=== PATIENT | female | born 1945 | race Caucasian/White ===

== ENCOUNTER 2018-08-24 12:14 | Inpatient (IN) ==
[2018-08-24] MEDS ORDERED: TUSSIONEX PENNKINETIC SUSP PO PRN (14:50)
[2018-08-24] MEDS ORDERED: SOLU-Medrol 125 MG VIAL IVP NR (14:50)
[2018-08-24] MEDS ORDERED: FORTAZ or TAZICEF VIAL INJ IVP SCH (14:50)
[2018-08-24] MEDS ORDERED: NS 1/2 1000 ML IV 1,000 ML ONE (14:57)
[2018-08-24] MEDS: NS 1/2 1000 ML IV 1,000 ML IV SCH (15:15)
[2018-08-24] MEDS: PEPCID 20 MG IV PREMIX* 20 MG/50 ML BAG IV SCH ×2 (15:15→21:16)
[2018-08-24 15:23] LABS: BASOPHILS % (AUTO) 0.3 % (0.2-1.0); EOSINOPHILS # (AUTO) 0.1 x10^3/uL (0.0-0.2); EOSINOPHILS % (AUTO) 0.6 % (0.9-2.9); HEMATOCRIT 34.3 % (36.0-47.0); LYMPHOCYTES # (AUTO) 1.6 X10^3/uL (1.3-2.9); LYMPHOCYTES % (AUTO) 17.1 % (21.0-51.0); MEAN CORPUSCULAR HEMOGLOBIN 23.6 pg (27.0-34.0); MEAN CORPUSCULAR HGB CONC 32.1 g/dL (33.0-35.0); MEAN CORPUSCULAR VOLUME 73.6 fL (80.0-100.0); MEAN PLATELET VOLUME 8.1 fL (7.4-11.0); MONOCYTES # (AUTO) 0.9 x10^3/uL (0.3-0.8); MONOCYTES % (AUTO) 9.6 % (0.0-13.0); NEUTROPHILS # (AUTO) 6.9 x10^3/uL (2.2-4.8); NEUTROPHILS % (AUTO) 72.4 % (42.0-75.0); PLATELET COUNT 74 X10^3/uL (150.0-450.0); RED BLOOD COUNT 4.65 X10^6/uL (3.5-5.4); RED CELL DISTRIBUTION WIDTH 18.3 % (11.6-16.5); WHITE BLOOD COUNT 9.5 X10^3/uL (3.6-10.0)
[2018-08-24 15:33] LABS: GIANT PLATELET RARE; HYPOCHROMASIA 1+; PLATELET MORPHOLOGY COMMENT ABNORMAL (NORMAL)
[2018-08-24 15:34] LABS: ANISOCYTOSIS SLIGHT; MICROCYTOSIS SLIGHT
[2018-08-24 15:35] LABS: CALCIUM 8.9 mg/dL (8.5-10.1); CARBON DIOXIDE 26.2 mmol/L (21-32); COR CA(FOR HYPOALB) 9.7 mg/dL (8.5-10.1); CREATININE 1.53 mg/dL (0.55-1.02); TOTAL PROTEIN 6.3 g/dL (6.4-8.2)
--- NOTE | 2018-08-24 15:54 | RAD ---
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 There are sternotomy wires from prior CABG surgery. Heart size and configuration airway vascularity are normal. The lungs are clear without infiltrates effusions or adenopathy. IMPRESSION: 1. Postsurgical chest status post CABG surgery. 2. No acute cardiopulmonary abnormalities. Reported By:
[2018-08-24 16:37] VITALS: BMI 31.6
[2018-08-24] MEDS: ROBITUSSIN DM PO SCH ×2 (16:46→21:15)
[2018-08-24] MEDS: VSL#3 PO SCH (16:46)
[2018-08-24] MEDS: LEVAQUIN PREMIX IV 500 MG 500 MG/100 ML BAG IV SCH (16:46)
[2018-08-24] MEDS: DUONEB 0.5 MG/3 MG NEB SCH ×2 (17:03→20:52)
[2018-08-24] MEDS ORDERED: PHENERGAN TAB 25 MG PO PRN (18:12)
--- NOTE | 2018-08-24 18:53 | DR.UPDATE ---
H&P Update History and Physical Update: WAS SEEN IN THE OFFICE TODAY BY BREANNE AVENDANO FOR COMPLAINTS OF COUGH, CONGESTION, SHORTNESS OF BREATH, AND FEVER X 4 DAYS. SHE WAS ADMITTED FOR FURTHER EVALUATION AND TREATMENT OF COMMUNITY ACQUIRED PNEUMONIA AND DEHYDRATION. ON ADMISSION, WE PLAN TO [facility] LABS, CHEST XRAY, AND CULTURES. WE WILL START IV FLUIDS, IV LEVAQUIN, IV FORTAZ, AND RESPIRATORY TREATMENTS. OTHERWISE, WE WILL CONTINUE TO MONITOR. NO OTHER CHANGES NOTED TO H&P. Changes noted: NO Prescription drug monitoring program results: PDMP reviewed and no concerns identified
[2018-08-24] MEDS: SNACK - Diabetic Appropriate PO SCH (20:58)
[2018-08-24] MEDS: ELIQUIS PO SCH (21:15)
[2018-08-24] MEDS: FORTAZ or TAZICEF VIAL INJ IVP SCH (21:15)
[2018-08-24] MEDS: SOLU-Medrol 40 MG VIAL IVP SCH (21:15)
[2018-08-24] MEDS: PROTONIX TAB 40 MG PO SCH (21:15)
[2018-08-24] MEDS: AMBIEN PO SCH (21:15)
[2018-08-24] MEDS: LOPRESSOR TAB 50 MG PO SCH (21:15)
[2018-08-24] MEDS: HumuLIN R SUBCUT PRN (21:16)
[2018-08-25] MEDS: DUONEB 0.5 MG/3 MG NEB SCH ×7 (01:01→20:46)
[2018-08-25] MEDS ORDERED: NS 1/2 1000 ML IV 1,000 ML ONE ×2 (04:35→20:27)
[2018-08-25] MEDS ORDERED: ULTRAM ONE (05:32)
[2018-08-25] MEDS: ULTRAM PO PRN ×2 (05:41→20:42)
[2018-08-25] MEDS: NS 1/2 1000 ML IV 1,000 ML IV SCH ×3 (05:41→20:48)
[2018-08-25] MEDS: SOLU-Medrol 40 MG VIAL IVP SCH ×3 (05:42→21:22)
[2018-08-25] MEDS: HumuLIN R SUBCUT PRN ×3 (06:18→17:54)
[2018-08-25 06:28] LABS: BASOPHILS % (AUTO) 0.2 % (0.2-1.0); EOSINOPHILS % (AUTO) 0.1 % (0.9-2.9); HEMATOCRIT 31.5 % (36.0-47.0); HEMOGLOBIN 10.1 g/dL (12.0-16.0); LYMPHOCYTES # (AUTO) 0.7 X10^3/uL (1.3-2.9); LYMPHOCYTES % (AUTO) 13.4 % (21.0-51.0); MEAN CORPUSCULAR HEMOGLOBIN 23.9 pg (27.0-34.0); MEAN CORPUSCULAR HGB CONC 32.2 g/dL (33.0-35.0); MEAN CORPUSCULAR VOLUME 74.2 fL (80.0-100.0); MONOCYTES # (AUTO) 0.1 x10^3/uL (0.3-0.8); MONOCYTES % (AUTO) 2.4 % (0.0-13.0); NEUTROPHILS # (AUTO) 4.5 x10^3/uL (2.2-4.8); NEUTROPHILS % (AUTO) 83.9 % (42.0-75.0); PLATELET COUNT 70 X10^3/uL (150.0-450.0); RED BLOOD COUNT 4.24 X10^6/uL (3.5-5.4); RED CELL DISTRIBUTION WIDTH 17.7 % (11.6-16.5); WHITE BLOOD COUNT 5.4 X10^3/uL (3.6-10.0)
[2018-08-25 06:47] LABS: ALBUMIN 2.7 g/dL (3.4-5.0); CALCIUM 8.8 mg/dL (8.5-10.1); CARBON DIOXIDE 21.3 mmol/L (21-32); COR CA(FOR HYPOALB) 9.8 mg/dL (8.5-10.1); CREATININE 1.29 mg/dL (0.55-1.02); TOTAL PROTEIN 6.1 g/dL (6.4-8.2)
[2018-08-25 07:07] LABS: HYPOCHROMASIA SLIGHT; PLATELET MORPHOLOGY COMMENT NORMAL (NORMAL)
--- NOTE | 2018-08-25 08:34 | RAD ---
HISTORY: Shortness of breath Study: Single-view chest Comparison: 08/24/2018. Findings: There are again changes of CABG with median sternotomy sutures and metallic markers indicating coronary artery bypass grafts. There is cardiomegaly. Increased interstitial markings are present bilaterally without consolidation, CHF, pleural fluid or pneumothorax. Osseous structures are intact. IMPRESSION: Cardiomegaly with changes of CABG. Increased interstitial markings bilaterally. Findings may represent bronchitis are very mild interstitial infiltrates. No consolidation, CHF or pleural fluid is seen. Reported By:
[2018-08-25] MEDS: PEPCID 20 MG IV PREMIX* 20 MG/50 ML BAG IV SCH ×2 (09:03→20:41)
[2018-08-25] MEDS: LEVAQUIN PREMIX IV 500 MG 500 MG/100 ML BAG IV SCH (09:03)
[2018-08-25] MEDS: FORTAZ or TAZICEF VIAL INJ IVP SCH ×2 (09:04→20:41)
[2018-08-25] MEDS: ALDACTONE TAB 25 MG PO SCH (09:04)
[2018-08-25] MEDS: PROzac PO SCH (09:04)
[2018-08-25] MEDS: ELIQUIS PO SCH ×2 (09:04→20:41)
[2018-08-25] MEDS: ROBITUSSIN DM PO SCH ×4 (09:04→20:41)
[2018-08-25] MEDS: ZYLOPRIM PO SCH (09:05)
[2018-08-25] MEDS: VSL#3 PO SCH (09:05)
[2018-08-25] MEDS: PROTONIX TAB 40 MG PO SCH ×2 (09:05→20:42)
[2018-08-25] MEDS: ASPIRIN EC 81 MG PO SCH (09:05)
[2018-08-25] MEDS: LOPRESSOR TAB 50 MG PO SCH ×2 (09:05→20:42)
[2018-08-25] MEDS: DIFLUCAN 200 MG IV PREMIX* 200 MG/100 ML BAG IV SCH (11:53)
[2018-08-25] MEDS: MYCOLOG-II CREAM TOP SCH ×2 (11:54→20:44)
[2018-08-25] MEDS: NORVASC TAB 5 MG PO SCH (16:53)
--- NOTE | 2018-08-25 19:45 | PCM.PROG ---
Progress Note - Progress Note for Day of Date of Exam: 08/25/18 - Subjective Subjective: WAS ADMITTED FOR TREATMENT OF COMMUNITY ACQUIRED PNEUMONIA. SHE REPORTS RECEIVING ROCEPHIN 1G IM X 4 DOSES WITHOUT IMPROVEMENT OF SYMPTOMS. TODAY, SHE IS ALERT AND ORIENTED, LYING IN BED ON MORNING ROUNDS. SHE CONTINUES WITH COMPLAINTS OF A PERSISTENT COUGH AND NAUSEA. SHE STATES THAT COUGH HAS BEEN PRODUCTIVE THROUGHOUT THE NIGHT. SHE ALSO CONTINUES WITH SHORTNESS OF BREATH. ON EXAMINATION, HEART IS REGULAR IN RATE AND RHYTHM. BILATERAL LUNGS ARE NOTED WITH SCATTERED WHEEZING. ABDOMEN IS ROUND, SOFT, AND NON-TENDER WITH NORMAL BOWEL SOUNDS NOTED IN ALL QUADRANTS. HER VITALS THIS MORNING ARE: 97.7-74-24-98%-119/82. LABS WERE OBTAINED. ABNORMAL LAB VALUES INCLUDE THE FOLLOWING: HGB 10.1, HCT 31.5, PLT COUNT 70, BUN 29, CREATININE 1.29, GLUCOSE 412, AST 6, ALT 7, TOTAL PROTEIN 6.1, ALBUMIN 2.7. BLOOD AND SPUTUM CULTURES ARE PENDING. A CHEST XRAY WAS OBTAINED TODAY AND REVEALED: Increased interstitial markings bilaterally. Findings may represent bronchitis are very mild in terstitial infiltrates. No consolidation, CHF or pleural fluid is seen. SHE IS CURRENTLY RECEIVING IV FLUIDS, IV ANTIBIOTICS, AND RESPIRATORY TREATMENTS. WE WILL CONTINUE WITH CURRENT PLAN OF CARE TODAY AND START IV DIFLUCAN AND MYCOLOG CREAM DUE TO DEVELOPING VAGINAL YEAST INFECTION. OTHERWISE, WE WILL FOLLOW UP WITH AM LABS AND [facility]. - Past Medical Family Social History Past Med/Fam/Surg Hx: No changes since H&P Allergies: Allergies codeine Allergy (Verified 08/24/18 15:28) Sulfa (Sulfonamide Antibiotics) [SULFA] Allergy (Verified 08/24/18 15:28) - Review of Systems ROS: No change since H&P - Vital Signs and I&O's Vital Signs: Temperature 97.6 F Pulse Rate [Left Brachial] 62 Pulse Rate 60 Respiratory Rate 20 Blood Pressure [Left Arm] 195/79 Blood Pressure 131/70 O2 Sat by Pulse Oximetry 98 Intake and Output: Intake & Output 08/23/18 08/24/18 08/25/18 08/26/18 11:59 11:59 11:59 11:59 Intake Total 1708 / 1708 1236 / 1236 Balance 1708 / 1708 1236 / 1236 - Physical Exam Oriented: Normal Eyes: Normal Ear: Normal Nose: Normal Throat: Normal Respiratory: Generalized, Wheezes Cardiovascular: Normal. negative: S3, S4, Murmur : Normal Auscultation: Bowel Sounds: Normal Palpation: Normal Tenderness: Normal Skin: Normal Musculoskeletal: Normal Psychiatric: Normal Mood Description: Calm Affect: Normal Speech Pattern: Clear, Appropriate - Laboratory and Diagnostics Result Diagrams: 08/25/18 05:29 08/25/18 05:29 Labs: 08/25/18 07:57 Sputum - Expectorated Sputum - Final Laboratory WBC 5.4 X10^3/uL (3.6-10.0) 08/25/18 05:29 RBC 4.24 X10^6/uL (3.5-5.4) 08/25/18 05:29 Hgb 10.1 g/dL (12.0-16.0) L 08/25/18 05:29 Hct 31.5 % (36.0-47.0) L 08/25/18 05:29 MCV 74.2 fL (80.0-100.0) L 08/25/18 05:29 MCH 23.9 pg (27.0-34.0) L 08/25/18 05:29 MCHC 32.2 g/dL (33.0-35.0) L 08/25/18 05:29 RDW 17.7 % (11.6-16.5) H 08/25/18 05:29 Plt Count 70 X10^3/uL (150.0-450.0) L 08/25/18 05:29 Plt Count Comment Decreased (ADEQUATE) A 08/25/18 05:29 MPV 8.0 fL (7.4-11.0) 08/25/18 05:29 Neut % (Auto) 83.9 % (42.0-75.0) H 08/25/18 05:29 Lymph % (Auto) 13.4 % (21.0-51.0) L 08/25/18 05:29 [place] % (Auto) 2.4 % (0.0-13.0) 08/25/18 05:29 Eos % (Auto) 0.1 % (0.9-2.9) L 08/25/18 05:29 Baso % (Auto) 0.2 % (0.2-1.0) 08/25/18 05:29 Neut # (Auto) 4.5 x10^3/uL (2.2-4.8) 08/25/18 05:29 Lymph # (Auto) 0.7 X10^3/uL (1.3-2.9) L 08/25/18 05:29 [place] # (Auto) 0.1 x10^3/uL (0.3-0.8) L 08/25/18 05:29 Eos # (Auto) 0.0 x10^3/uL (0.0-0.2) 08/25/18 05:29 Baso # (Auto) 0.0 X10^3/uL (0.0-0.1) 08/25/18 05:29 Absolute Nucleated RBC 0.1 /100WBC 08/25/18 05:29 Giant Platelets Rare 08/24/18 15:05 Plt Morphology Comment Normal (NORMAL) 08/25/18 05:29 RBC Morphology Abnormal (NORMAL) A 08/25/18 05:29 Hypochromasia Slight A 08/25/18 05:29 Anisocytosis Slight A 08/24/18 15:05 Microcytosis Slight A 08/24/18 15:05 Sodium 136 mmol/L (136-145) 08/25/18 05:29 Corrected Sodium 143 mmol/L (136-145) 08/25/18 05:29 Potassium 4.7 mmol/L (3.5-5.1) 08/25/18 05:29 Chloride 102 mmol/L (98-107) 08/25/18 05:29 Carbon Dioxide 21.3 mmol/L (21-32) 08/25/18 05:29 BUN 29 mg/dL (7-18) H 08/25/18 05:29 Creatinine 1.29 mg/dL (0.55-1.02) H 08/25/18 05:29 Est GFR (MDRD) Af Amer 53 (>60) L 08/25/18 05:29 Est GFR (MDRD) Non-Af 43 (>60) L 08/25/18 05:29 Glucose 412 mg/dL (65-99) H 08/25/18 05:29 POC Glucose (mg/dL) 364 mg/dL (65-99) H 08/25/18 05:54 Calcium 8.8 mg/dL (8.5-10.1) 08/25/18 05:29 Corrected Calcium 9.8 mg/dL (8.5-10.1) 08/25/18 05:29 Total Bilirubin 0.30 mg/dL (0.2-1.0) 08/25/18 05:29 AST 6 Units/L (15-37) L 08/25/18 05:29 ALT 7 Units/L (12-78) L 08/25/18 05:29 Alkaline Phosphatase 62 Units/L (46-116) 08/25/18 05:29 Total Protein 6.1 g/dL (6.4-8.2) L 08/25/18 05:29 Albumin 2.7 g/dL (3.4-5.0) L 08/25/18 05:29 Globulin 3.4 g/dL (2.5-4.5) 08/25/18 05:29 Albumin/Globulin Ratio 0.8 Ratio (1.1-2.1) L 08/25/18 05:29 - Plan (1) Pneumonia Status: Acute Qualifiers: Pneumonia type: due to unspecified organism Laterality: unspecified laterality Lung location: unspecified part of lung Qualified Code(s): J18.9 - Pneumonia, unspecified organism Plan: IV ANTIBIOTICS, RESPIRATORY TX, SUPPLEMENTAL OXYGEN, CONTINUE TO MONITOR (2) Vaginal yeast infection Status: Acute Plan: IV DIFLUCAN, MYCOLOG CREAM, CONTINUE TO MONITOR
[2018-08-25] MEDS: SNACK - Diabetic Appropriate PO SCH (20:45)
[2018-08-25] MEDS: AMBIEN PO SCH (21:46)
[2018-08-26] MEDS: DUONEB 0.5 MG/3 MG NEB SCH ×3 (01:27→09:09)
[2018-08-26 05:21] LABS: BASOPHILS # (AUTO) 0.1 X10^3/uL (0.0-0.1); BASOPHILS % (AUTO) 0.6 % (0.2-1.0); EOSINOPHILS % (AUTO) 0.2 % (0.9-2.9); HEMATOCRIT 32.6 % (36.0-47.0); HEMOGLOBIN 10.4 g/dL (12.0-16.0); LYMPHOCYTES # (AUTO) 1.5 X10^3/uL (1.3-2.9); LYMPHOCYTES % (AUTO) 16.8 % (21.0-51.0); MEAN CORPUSCULAR HEMOGLOBIN 23.3 pg (27.0-34.0); MEAN CORPUSCULAR HGB CONC 31.9 g/dL (33.0-35.0); MEAN CORPUSCULAR VOLUME 73.2 fL (80.0-100.0); MEAN PLATELET VOLUME 7.9 fL (7.4-11.0); MONOCYTES # (AUTO) 0.3 x10^3/uL (0.3-0.8); MONOCYTES % (AUTO) 3.2 % (0.0-13.0); NEUTROPHILS # (AUTO) 7.1 x10^3/uL (2.2-4.8); NEUTROPHILS % (AUTO) 79.2 % (42.0-75.0); PLATELET COUNT 103 X10^3/uL (150.0-450.0); RED BLOOD COUNT 4.46 X10^6/uL (3.5-5.4); RED CELL DISTRIBUTION WIDTH 17.7 % (11.6-16.5)
[2018-08-26 05:46] LABS: ALANINE AMINOTRANSFERASE 6 Units/L (12-78); ALBUMIN 2.8 g/dL (3.4-5.0); ALKALINE PHOSPHATASE 56 Units/L (46-116); ASPARTATE AMINO TRANSFERASE 9 Units/L (15-37); BLOOD UREA NITROGEN 28 mg/dL (7-18); CALCIUM 9.2 mg/dL (8.5-10.1); CARBON DIOXIDE 23.5 mmol/L (21-32); CHLORIDE 105 mmol/L (98-107); COR CA(FOR HYPOALB) 10.2 mg/dL (8.5-10.1); COR NA(FOR HYPERGLY) 142 mmol/L (136-145); SODIUM 139 mmol/L (136-145); eGFR NON BLACK RACES 52 (>60)
[2018-08-26] MEDS: SOLU-Medrol 40 MG VIAL IVP SCH (06:03)
[2018-08-26] MEDS: HumuLIN R SUBCUT PRN ×4 (06:04→21:34)
--- NOTE | 2018-08-26 06:10 | RAD ---
HISTORY: Shortness of breath Study: Chest AP portable Comparison: 08/25/2018 Findings: The patient is status post median sternotomy and CABG. The heart is enlarged. No congestive heart failure is noted. The aorta is calcified. The lung perkins are clear. The bony thorax is unremarkable. IMPRESSION: Continued cardiomegaly without congestive heart failure Lungs clear Reported By:
[2018-08-26 06:21] LABS: ANISOCYTOSIS SLIGHT; HYPOCHROMASIA 1+; PLATELET MORPHOLOGY COMMENT NORMAL (NORMAL)
[2018-08-26] MEDS: ROBITUSSIN DM PO SCH ×4 (09:50→21:36)
[2018-08-26] MEDS: ZYLOPRIM PO SCH (09:50)
[2018-08-26] MEDS: VSL#3 PO SCH (09:50)
[2018-08-26] MEDS: NORVASC TAB 5 MG PO SCH (09:50)
[2018-08-26] MEDS: LOPRESSOR TAB 50 MG PO SCH ×2 (09:50→21:37)
[2018-08-26] MEDS: ASPIRIN EC 81 MG PO SCH (09:50)
[2018-08-26] MEDS: PROzac PO SCH (09:51)
[2018-08-26] MEDS: ALDACTONE TAB 25 MG PO SCH (09:51)
[2018-08-26] MEDS: ELIQUIS PO SCH ×2 (09:51→21:36)
[2018-08-26] MEDS: PROTONIX TAB 40 MG PO SCH ×2 (09:51→21:36)
[2018-08-26] MEDS: PEPCID 20 MG IV PREMIX* 20 MG/50 ML BAG IV SCH ×2 (09:51→21:36)
[2018-08-26] MEDS: DIFLUCAN 200 MG IV PREMIX* 200 MG/100 ML BAG IV SCH (09:51)
[2018-08-26] MEDS: LEVAQUIN PREMIX IV 500 MG 500 MG/100 ML BAG IV SCH (09:51)
[2018-08-26] MEDS: MYCOLOG-II CREAM TOP SCH ×2 (09:52→21:38)
[2018-08-26] MEDS: FORTAZ or TAZICEF VIAL INJ IVP SCH ×2 (09:52→21:36)
[2018-08-26] MEDS: NS 1/2 1000 ML IV 1,000 ML IV SCH ×2 (09:57→21:37)
[2018-08-26] MEDS: MIRALAX POWDER (1 DOSE 17 G) PO SCH (13:06)
[2018-08-26] MEDS: MILK OF MAGNESIA PO SCH ×4 (13:06→21:36)
[2018-08-26] MEDS: COLACE CAP 100 MG PO SCH ×2 (13:08→21:36)
[2018-08-26] MEDS: PROCALAMINE 3 % 1,000 ML IV SCH (17:49)
[2018-08-26] MEDS ORDERED: NS 1/2 1000 ML IV 1,000 ML ONE (20:40)
[2018-08-26] MEDS: SNACK - Diabetic Appropriate PO SCH (21:33)
[2018-08-26] MEDS: AMBIEN PO SCH (21:36)
[2018-08-27] MEDS: NS 1/2 1000 ML IV 1,000 ML IV SCH ×3 (01:04→20:40)
--- NOTE | 2018-08-27 05:59 | RAD ---
HISTORY: Shortness of breath Study: Chest AP portable Comparison: 08/26/2018 Findings: The patient is status post median sternotomy and CABG. The heart remains enlarged. No congestive heart failure is noted. No infiltrates or pleural effusions are identified. The bony thorax is unremarkable. IMPRESSION: Continued cardiomegaly without congestive heart failure Lungs clear Reported By:
[2018-08-27 06:07] LABS: BASOPHILS # (AUTO) 0.1 X10^3/uL (0.0-0.1); BASOPHILS % (AUTO) 0.5 % (0.2-1.0); HEMATOCRIT 34.7 % (36.0-47.0); HEMOGLOBIN 11.2 g/dL (12.0-16.0); LYMPHOCYTES # (AUTO) 2.8 X10^3/uL (1.3-2.9); LYMPHOCYTES % (AUTO) 21.7 % (21.0-51.0); MEAN CORPUSCULAR HEMOGLOBIN 23.4 pg (27.0-34.0); MEAN CORPUSCULAR HGB CONC 32.3 g/dL (33.0-35.0); MEAN CORPUSCULAR VOLUME 72.4 fL (80.0-100.0); MEAN PLATELET VOLUME 7.7 fL (7.4-11.0); MONOCYTES # (AUTO) 0.7 x10^3/uL (0.3-0.8); MONOCYTES % (AUTO) 5.8 % (0.0-13.0); NEUTROPHILS # (AUTO) 9.2 x10^3/uL (2.2-4.8); PLATELET COUNT 139 X10^3/uL (150.0-450.0); RED BLOOD COUNT 4.79 X10^6/uL (3.5-5.4); RED CELL DISTRIBUTION WIDTH 17.8 % (11.6-16.5); WHITE BLOOD COUNT 12.8 X10^3/uL (3.6-10.0)
[2018-08-27 06:15] LABS: ALBUMIN 2.8 g/dL (3.4-5.0); CALCIUM 9.3 mg/dL (8.5-10.1); CARBON DIOXIDE 26.2 mmol/L (21-32); COR CA(FOR HYPOALB) 10.3 mg/dL (8.5-10.1); CREATININE 1.15 mg/dL (0.55-1.02)
[2018-08-27] MEDS: HumuLIN R SUBCUT PRN ×2 (06:15→20:41)
[2018-08-27 06:35] LABS: HYPOCHROMASIA SLIGHT; PLATELET MORPHOLOGY COMMENT NORMAL (NORMAL)
[2018-08-27] MEDS: LEVAQUIN PREMIX IV 500 MG 500 MG/100 ML BAG IV SCH (08:55)
[2018-08-27] MEDS: DIFLUCAN 200 MG IV PREMIX* 200 MG/100 ML BAG IV SCH (08:55)
[2018-08-27] MEDS: PEPCID 20 MG IV PREMIX* 20 MG/50 ML BAG IV SCH ×2 (08:56→20:39)
[2018-08-27] MEDS: ROBITUSSIN DM PO SCH ×4 (08:56→20:34)
[2018-08-27] MEDS: PROzac PO SCH (08:56)
[2018-08-27] MEDS: MILK OF MAGNESIA PO SCH ×4 (08:56→20:33)
[2018-08-27] MEDS: VSL#3 PO SCH (08:57)
[2018-08-27] MEDS: ZYLOPRIM PO SCH (08:57)
[2018-08-27] MEDS: NORVASC TAB 5 MG PO SCH (08:57)
[2018-08-27] MEDS: LOPRESSOR TAB 50 MG PO SCH ×2 (08:57→20:35)
[2018-08-27] MEDS: ALDACTONE TAB 25 MG PO SCH (08:57)
[2018-08-27] MEDS: COLACE CAP 100 MG PO SCH ×2 (08:57→20:35)
[2018-08-27] MEDS: PROTONIX TAB 40 MG PO SCH ×2 (08:57→20:35)
[2018-08-27] MEDS: ELIQUIS PO SCH ×2 (08:57→20:35)
[2018-08-27] MEDS: ASPIRIN EC 81 MG PO SCH (08:59)
[2018-08-27] MEDS: FORTAZ or TAZICEF VIAL INJ IVP SCH ×2 (09:00→20:34)
[2018-08-27] MEDS: MYCOLOG-II CREAM TOP SCH ×2 (09:00→20:40)
[2018-08-27] MEDS: MIRALAX POWDER (1 DOSE 17 G) PO SCH (09:00)
--- NOTE | 2018-08-27 11:08 | PCM.PROG ---
Progress Note - Progress Note for Day of Date of Exam: 08/26/18 - Subjective Subjective: WAS ADMITTED FOR TREATMENT OF COMMUNITY ACQUIRED PNEUMONIA. SHE REPORTS RECEIVING ROCEPHIN 1G IM X 4 DOSES WITHOUT IMPROVEMENT OF SYMPTOMS. TODAY, SHE IS ALERT AND ORIENTED, LYING IN BED ON MORNING ROUNDS. SHE CONTINUES WITH COMPLAINTS OF A PERSISTENT COUGH AND NAUSEA. SHE STATES THAT COUGH HAS BEEN PRODUCTIVE THROUGHOUT THE NIGHT. SHE ALSO CONTINUES WITH SHORTNESS OF BREATH AND WEAKNESS. SHE DENIES A BOWEL MOVEMENT IN SEVERAL DAYS. ON EXAMINATION, HEART IS REGULAR IN RATE AND RHYTHM. BILATERAL LUNGS ARE NOTED WITH SCATTERED WHEEZING. ABDOMEN IS ROUND, SOFT, AND NON-TENDER WITH NORMAL BOWEL SOUNDS NOTED IN ALL QUADRANTS. HER VITALS THIS MORNING ARE: 97.5-65-20-97%-186/78. LABS WERE OBTAINED. ABNORMAL LAB VALUES INCLUDE THE FOLLOWING: HGB 10.4, HCT 32.6, PLT COUNT 103, BUN 28, CREATININE 1.10, GLUCOSE 243, AST 9, ALT 6, TOTAL PROTEIN 6.0, ALBUMIN 2.8. BLOOD AND SPUTUM CULTURES ARE PENDING. A CHEST XRAY WAS OBTAINED TODAY AND REVEALED: Continued cardiomegaly without congestive heart failure. Lungs clear. SHE IS CURRENTLY RECEIVING IV FLUIDS, IV ANTIBIOTICS, AND RESPIRATORY TREATMENTS. WE WILL DISCONTINUE STEROIDS AND START A BOWEL REGIMEN TODAY. OTHERWISE, WE WILL FOLLOW UP WITH AM LABS AND CONTINUE TO [facility]. - Past Medical Family Social History Past Med/Fam/Surg Hx: No changes since H&P Allergies: Allergies codeine Allergy (Verified 08/24/18 15:28) Sulfa (Sulfonamide Antibiotics) [SULFA] Allergy (Verified 08/24/18 15:28) - Review of Systems ROS: No change since H&P - Vital Signs and I&O's Vital Signs: Temperature 97.5 F Pulse Rate [Left Brachial] 66 Pulse Rate 62 Respiratory Rate 18 Blood Pressure [Left Arm] 172/74 Blood Pressure 131/70 O2 Sat by Pulse Oximetry 96 Intake and Output: Intake & Output 08/24/18 08/25/18 08/26/18 08/27/18 11:59 11:59 11:59 11:59 Intake Total 1708 / 1708 2436 / 2436 2620 / 2620 Balance 1708 / 1708 2436 / 2436 2620 / 2620 - Physical Exam Oriented: Normal Eyes: Normal Ear: Normal Nose: Normal Throat: Normal Respiratory: Generalized, Wheezes Cardiovascular: Normal. negative: S3, S4, Murmur : Normal Auscultation: Bowel Sounds: Normal Tenderness: Normal Skin: Normal Musculoskeletal: Normal Psychiatric: Normal Mood Description: Calm Affect: Normal Speech Pattern: Clear, Appropriate - Laboratory and Diagnostics Result Diagrams: 08/27/18 05:28 08/27/18 05:29 Labs: 08/25/18 07:57 Sputum - Expectorated Sputum Sputum Culture - Final 08/25/18 07:57 Sputum - Expectorated Sputum - Final 08/24/18 15:07 Blood Blood Culture - Preliminary 08/24/18 15:05 Blood Blood Culture - Preliminary Laboratory WBC 12.8 X10^3/uL (3.6-10.0) H 08/27/18 05:28 RBC 4.79 X10^6/uL (3.5-5.4) 08/27/18 05:28 Hgb 11.2 g/dL (12.0-16.0) L 08/27/18 05:28 Hct 34.7 % (36.0-47.0) L 08/27/18 05:28 MCV 72.4 fL (80.0-100.0) L 08/27/18 05:28 MCH 23.4 pg (27.0-34.0) L 08/27/18 05:28 MCHC 32.3 g/dL (33.0-35.0) L 08/27/18 05:28 RDW 17.8 % (11.6-16.5) H 08/27/18 05:28 Plt Count 139 X10^3/uL (150.0-450.0) L 08/27/18 05:28 Plt Count Comment Adequate (ADEQUATE) 08/27/18 05:28 MPV 7.7 fL (7.4-11.0) 08/27/18 05:28 Neut % (Auto) 72.0 % (42.0-75.0) 08/27/18 05:28 Lymph % (Auto) 21.7 % (21.0-51.0) 08/27/18 05:28 [place] % (Auto) 5.8 % (0.0-13.0) 08/27/18 05:28 Eos % (Auto) 0.0 % (0.9-2.9) L 08/27/18 05:28 Baso % (Auto) 0.5 % (0.2-1.0) 08/27/18 05:28 Neut # (Auto) 9.2 x10^3/uL (2.2-4.8) H 08/27/18 05:28 Lymph # (Auto) 2.8 X10^3/uL (1.3-2.9) 08/27/18 05:28 [place] # (Auto) 0.7 x10^3/uL (0.3-0.8) 08/27/18 05:28 Eos # (Auto) 0.0 x10^3/uL (0.0-0.2) 08/27/18 05:28 Baso # (Auto) 0.1 X10^3/uL (0.0-0.1) 08/27/18 05:28 Absolute Nucleated RBC 0.0 /100WBC 08/27/18 05:28 Giant Platelets Rare 08/24/18 15:05 Plt Morphology Comment Normal (NORMAL) 08/27/18 05:28 RBC Morphology Abnormal (NORMAL) A 08/27/18 05:28 Hypochromasia Slight A 08/27/18 05:28 Anisocytosis Slight A 08/26/18 04:55 Microcytosis Slight A 08/24/18 15:05 Sodium 136 mmol/L (136-145) 08/27/18 05:29 Corrected Sodium 138 mmol/L (136-145) 08/27/18 05:29 Potassium 4.9 mmol/L (3.5-5.1) 08/27/18 05:29 Chloride 102 mmol/L (98-107) 08/27/18 05:29 Carbon Dioxide 26.2 mmol/L (21-32) 08/27/18 05:29 BUN 37 mg/dL (7-18) H 08/27/18 05:29 Creatinine 1.15 mg/dL (0.55-1.02) H 08/27/18 05:29 Est GFR (MDRD) Af Amer 60 (>60) 08/27/18 05:29 Est GFR (MDRD) Non-Af 50 (>60) L 08/27/18 05:29 Glucose 187 mg/dL (65-99) H 08/27/18 05:29 POC Glucose (mg/dL) 181 mg/dL (65-99) H 08/27/18 05:36 Calcium 9.3 mg/dL (8.5-10.1) 08/27/18 05:29 Corrected Calcium 10.3 mg/dL (8.5-10.1) H 08/27/18 05:29 Total Bilirubin 0.50 mg/dL (0.2-1.0) 08/27/18 05:29 AST 8 Units/L (15-37) L 08/27/18 05:29 ALT 9 Units/L (12-78) L 08/27/18 05:29 Alkaline Phosphatase 53 Units/L (46-116) 08/27/18 05:29 Total Protein 6.0 g/dL (6.4-8.2) L 08/27/18 05:29 Albumin 2.8 g/dL (3.4-5.0) L 08/27/18 05:29 Globulin 3.2 g/dL (2.5-4.5) 08/27/18 05:29 Albumin/Globulin Ratio 0.9 Ratio (1.1-2.1) L 08/27/18 05:29 - Plan (1) Pneumonia Status: Acute Qualifiers: Pneumonia type: due to unspecified organism Laterality: unspecified late rality Lung location: unspecified part of lung Qualified Code(s): J18.9 - Pneumonia, unspecified organism Plan: IV ANTIBIOTICS, RESPIRATORY TX, SUPPLEMENTAL OXYGEN, CONTINUE TO MONITOR (2) Vaginal yeast infection Status: Acute Plan: IV DIFLUCAN, MYCOLOG CREAM, CONTINUE TO MONITOR
[2018-08-27] MEDS ORDERED: NS 1/2 1000 ML IV 1,000 ML ONE ×2 (13:45→20:06)
[2018-08-27] MEDS: PROCALAMINE 3 % 1,000 ML IV SCH (19:36)
[2018-08-27] MEDS: AMBIEN PO SCH (20:35)
[2018-08-27] MEDS: SNACK - Diabetic Appropriate PO SCH (20:40)
[2018-08-28 05:29] LABS: BASOPHILS % (AUTO) 0.4 % (0.2-1.0); HEMATOCRIT 34.6 % (36.0-47.0); HEMOGLOBIN 11.2 g/dL (12.0-16.0); LYMPHOCYTES # (AUTO) 3.5 X10^3/uL (1.3-2.9); LYMPHOCYTES % (AUTO) 30.8 % (21.0-51.0); MEAN CORPUSCULAR HEMOGLOBIN 23.4 pg (27.0-34.0); MEAN CORPUSCULAR HGB CONC 32.3 g/dL (33.0-35.0); MEAN CORPUSCULAR VOLUME 72.4 fL (80.0-100.0); MONOCYTES # (AUTO) 1.2 x10^3/uL (0.3-0.8); MONOCYTES % (AUTO) 10.5 % (0.0-13.0); NEUTROPHILS # (AUTO) 6.6 x10^3/uL (2.2-4.8); NEUTROPHILS % (AUTO) 58.3 % (42.0-75.0); PLATELET COUNT 133 X10^3/uL (150.0-450.0); RED BLOOD COUNT 4.78 X10^6/uL (3.5-5.4); RED CELL DISTRIBUTION WIDTH 17.4 % (11.6-16.5); WHITE BLOOD COUNT 11.3 X10^3/uL (3.6-10.0)
[2018-08-28] MEDS: NS 1/2 1000 ML IV 1,000 ML IV SCH (05:33)
[2018-08-28 05:46] LABS: ALBUMIN 2.8 g/dL (3.4-5.0); CALCIUM 9.5 mg/dL (8.5-10.1); CARBON DIOXIDE 32.1 mmol/L (21-32); COR CA(FOR HYPOALB) 10.5 mg/dL (8.5-10.1); CREATININE 1.19 mg/dL (0.55-1.02); TOTAL PROTEIN 5.5 g/dL (6.4-8.2)
[2018-08-28 06:00] LABS: ANISOCYTOSIS SLIGHT; HYPOCHROMASIA 1+; PLATELET MORPHOLOGY COMMENT NORMAL (NORMAL)
[2018-08-28] MEDS: MILK OF MAGNESIA PO SCH (09:02)
[2018-08-28] MEDS: LOPRESSOR TAB 50 MG PO SCH (09:03)
[2018-08-28] MEDS: VSL#3 PO SCH (09:03)
[2018-08-28] MEDS: PEPCID 20 MG IV PREMIX* 20 MG/50 ML BAG IV SCH (09:03)
[2018-08-28] MEDS: NORVASC TAB 5 MG PO SCH (09:03)
[2018-08-28] MEDS: ALDACTONE TAB 25 MG PO SCH (09:03)
[2018-08-28] MEDS: ZYLOPRIM PO SCH (09:03)
[2018-08-28] MEDS: PROzac PO SCH (09:04)
[2018-08-28] MEDS: ROBITUSSIN DM PO SCH (09:04)
[2018-08-28] MEDS: PROTONIX TAB 40 MG PO SCH (09:04)
[2018-08-28] MEDS: COLACE CAP 100 MG PO SCH (09:04)
[2018-08-28] MEDS: ASPIRIN EC 81 MG PO SCH (09:04)
[2018-08-28] MEDS: ELIQUIS PO SCH (09:04)
[2018-08-28] MEDS: DIFLUCAN 200 MG IV PREMIX* 200 MG/100 ML BAG IV SCH (09:04)
[2018-08-28] MEDS: MIRALAX POWDER (1 DOSE 17 G) PO SCH (09:15)
[2018-08-28] MEDS: MYCOLOG-II CREAM TOP SCH (09:15)
[2018-08-28] MEDS: FORTAZ or TAZICEF VIAL INJ IVP SCH (09:16)
[2018-08-28] MEDS: LEVAQUIN PREMIX IV 500 MG 500 MG/100 ML BAG IV SCH (09:16)
[2018-08-28 09:49] VITALS: BP 191/77
--- NOTE | 2018-09-02 11:00 | PCM.PROG ---
Progress Note - Progress Note for Day of Date of Exam: 08/27/18 - Subjective Subjective: WAS ADMITTED FOR TREATMENT OF COMMUNITY ACQUIRED PNEUMONIA. SHE REPORTS RECEIVING ROCEPHIN 1G IM X 4 DOSES WITHOUT IMPROVEMENT OF SYMPTOMS. TODAY, SHE IS ALERT AND ORIENTED, LYING IN BED ON MORNING ROUNDS. SHE CONTINUES WITH COMPLAINTS OF A PERSISTENT COUGH, SHORTNESS OF BREATH, WEAKNESS, AND NAUSEA, BUT REPORTS SLIGHT IMPROVEMENT SINCE YESTERDAY. ON EXAMINATION, HEART IS REGULAR IN RATE AND RHYTHM. BILATERAL LUNGS CONTINUE WITH SCATTERED WHEEZING. ABDOMEN IS ROUND, SOFT, AND NON-TENDER WITH NORMAL BOWEL SOUNDS NOTED IN ALL QUADRANTS. HER VITALS THIS MORNING ARE: 98.9-60-18-96%-172/74. LABS WERE OBTAINED. ABNORMAL LAB VALUES INCLUDE THE FOLLOWING: WBC 12.8, HGB 11.2, HCT 34.7, BUN 37, CREATININE 1.15, GLUCOSE 187, AST 8, ALT 9, TOTAL PROTEIN 6.0, ALBUMIN 2.8. BLOOD AND SPUTUM CULTURES ARE PENDING. A CHEST XRAY WAS OBTAINED TODAY AND REVEALED: Continued cardiomegaly without congestive heart failure. Lungs clear. SHE IS CURRENTLY RECEIVING IV FLUIDS, IV ANTIBIOTICS, AND R ESPIRATORY TREATMENTS. WE WILL CONTINUE WITH CURRENT PLAN OF CARE TODAY. OTHERWISE, WE WILL FOLLOW UP WITH AM LABS AND CONTINUE TO [facility]. - Past Medical Family Social History Past Med/Fam/Surg Hx: No changes since H&P Allergies: Allergies codeine Allergy (Verified 08/24/18 15:28) Sulfa (Sulfonamide Antibiotics) [SULFA] Allergy (Verified 08/24/18 15:28) - Review of Systems ROS: No change since H&P - Vital Signs and I&O's Vital Signs: Temperature 98.1 F Pulse Rate [Left Brachial] 66 Pulse Rate 62 Respiratory Rate 20 Blood Pressure [Left Arm] 191/77 Blood Pressure 131/70 O2 Sat by Pulse Oximetry 94 - Physical Exam Oriented: Normal Eyes: Normal Ear: Normal Nose: Normal Throat: Normal Respiratory: Generalized, Wheezes Cardiovascular: Normal. negative: S3, S4, Murmur : Normal Auscultation: Bowel Sounds: Normal Tenderness: Normal Skin: Normal Musculoskeletal: Normal Psychiatric: Normal Mood Description: Calm Affect: Normal Speech Pattern: Clear, Appropriate - Laboratory and Diagnostics Result Diagrams: 08/28/18 04:53 08/28/18 04:53 Labs: 08/24/18 15:05 Blood Blood Culture - Final 08/24/18 15:07 Blood Blood Culture - Final 08/25/18 07:57 Sputum - Expectorated Sputum Sputum Culture - Final 08/25/18 07:57 Sputum - Expectorated Sputum - Final Laboratory WBC 11.3 X10^3/uL (3.6-10.0) H 08/28/18 04:53 RBC 4.78 X10^6/uL (3.5-5.4) 08/28/18 04:53 Hgb 11.2 g/dL (12.0-16.0) L 08/28/18 04:53 Hct 34.6 % (36.0-47.0) L 08/28/18 04:53 MCV 72.4 fL (80.0-100.0) L 08/28/18 04:53 MCH 23.4 pg (27.0-34.0) L 08/28/18 04:53 MCHC 32.3 g/dL (33.0-35.0) L 08/28/18 04:53 RDW 17.4 % (11.6-16.5) H 08/28/18 04:53 Plt Count 133 X10^3/uL (150.0-450.0) L 08/28/18 04:53 Plt Count Comment Adequate (ADEQUATE) 08/28/18 04:53 MPV 8.0 fL (7.4-11.0) 08/28/18 04:53 Neut % (Auto) 58.3 % (42.0-75.0) 08/28/18 04:53 Lymph % (Auto) 30.8 % (21.0-51.0) 08/28/18 04:53 [place] % (Auto) 10.5 % (0.0-13.0) 08/28/18 04:53 Eos % (Auto) 0.0 % (0.9-2.9) L 08/28/18 04:53 Baso % (Auto) 0.4 % (0.2-1.0) 08/28/18 04:53 Neut # (Auto) 6.6 x10^3/uL (2.2-4.8) H 08/28/18 04:53 Lymph # (Auto) 3.5 X10^3/uL (1.3-2.9) H 08/28/18 04:53 [place] # (Auto) 1.2 x10^3/uL (0.3-0.8) H 08/28/18 04:53 Eos # (Auto) 0.0 x10^3/uL (0.0-0.2) 08/28/18 04:53 Baso # (Auto) 0.0 X10^3/uL (0.0-0.1) 08/28/18 04:53 Absolute Nucleated RBC 0.2 /100WBC 08/28/18 04:53 Giant Platelets Rare 08/24/18 15:05 Plt Morphology Comment Normal (NORMAL) 08/28/18 04:53 RBC Morphology Abnormal (NORMAL) A 08/28/18 04:53 Hypochromasia 1+ A 08/28/18 04:53 Anisocytosis Slight A 08/28/18 04:53 Microcytosis Slight A 08/24/18 15:05 Sodium 136 mmol/L (136-145) 08/28/18 04:53 Corrected Sodium 137 mmol/L (136-145) 08/28/18 04:53 Potassium 5.2 mmol/L (3.5-5.1) H 08/28/18 04:53 Chloride 100 mmol/L (98-107) 08/28/18 04:53 Carbon Dioxide 32.1 mmol/L (21-32) H 08/28/18 04:53 BUN 35 mg/dL (7-18) H 08/28/18 04:53 Creatinine 1.19 mg/dL (0.55-1.02) H 08/28/18 04:53 Est GFR (MDRD) Af Amer 58 (>60) L 08/28/18 04:53 Est GFR (MDRD) Non-Af 48 (>60) L 08/28/18 04:53 Glucose 145 mg/dL (65-99) H 08/28/18 04:53 POC Glucose (mg/dL) 135 mg/dL (65-99) H 08/28/18 04:52 Calcium 9.5 mg/dL (8.5-10.1) 08/28/18 04:53 Corrected Calcium 10.5 mg/dL (8.5-10.1) H 08/28/18 04:53 Total Bilirubin 0.40 mg/dL (0.2-1.0) 08/28/18 04:53 AST 7 Units/L (15-37) L 08/28/18 04:53 ALT 9 Units/L (12-78) L 08/28/18 04:53 Alkaline Phosphatase 52 Units/L (46-116) 08/28/18 04:53 Total Protein 5.5 g/dL (6.4-8.2) L 08/28/18 04:53 Albumin 2.8 g/dL (3.4-5.0) L 08/28/18 04:53 Globulin 2.7 g/dL (2.5-4.5) 08/28/18 04:53 Albumin/Globulin Ratio 1.0 Ratio (1.1-2.1) L 08/28/18 04:53 - Plan (1) Pneumonia Status: Acute Qualifiers: Pneumonia type: due to unspecified organism Laterality: unspecified laterality Lung location: unspecified part of lung Qualified Code(s): J18.9 - Pneumonia, unspecified organism Plan: IV ANTIBIOTICS, RESPIRATORY TX, SUPPLEMENTAL OXYGEN, CONTINUE TO MONITOR (2) Vaginal yeast infection Status: Acute Plan: IV DIFLUCAN, MYCOLOG CREAM, CONTINUE TO MONITOR
== END 2018-08-28 11:07 | disposition home or self-care (01) | DRG 195 ==
LOC: MED/SURG → OBSVTOIN 14:03
PROVIDERS: ADMIT Internal Medicine; ATTEND Internal Medicine
DX: J18.8 Other pneumonia, unspecified organism; E86.0 Dehydration; B37.3 Candidiasis of vulva and vagina; R73.09 Other abnormal glucose; R06.02 Shortness of breath
CPT/HCPCS: 36415; 71010; 71020; 71045; 71046; 80053; 85025; 87040; 87070; 87205; 94640; 94760; A4222; B5200; S0028; J0713; J1450; J1815; J1956; J2920; J2930; J7620